=== PATIENT | female | born 1975 | race Caucasian/White ===

== ENCOUNTER → 2017-06-17 | Outpatient (CLI) | payer OTHER | LOC: BRMIMAGING 13:59 | DX: Z12.31 Encounter for screening mammogram for malignant neoplasm of breast (principal) ==

== ENCOUNTER → 2017-06-24 | Outpatient (CLI) | payer OTHER | LOC: BRMIMAGING 09:31 | DX: N60.12 Diffuse cystic mastopathy of left breast (principal); R59.9 Enlarged lymph nodes, unspecified | CPT/HCPCS: 76641-PO ==